=== PATIENT | male | born 1985 | race Caucasian/White ===

== ENCOUNTER 2021-01-01 09:20 | Outpatient (CLI) | payer MEDICARE, MEDICAID | END 2021-01-01 09:21 | disposition home or self-care (01) | LOC: CSHWCC 09:20 | PROVIDERS: ATTEND Nurse Practitioner Family | DX: S31.30XD Unspecified open wound of scrotum and testes, subsequent encounter (principal); L03.317 Cellulitis of buttock; B37.2 Candidiasis of skin and nail; E66.01 Morbid (severe) obesity due to excess calories; I89.0 Lymphedema, not elsewhere classified; J45.998 Other asthma; L02.828 Furuncle of other sites; B96.89 Other specified bacterial agents as the cause of diseases classified elsewhere; L20.89 Other atopic dermatitis; L73.2 Hidradenitis suppurativa; N50.89 Other specified disorders of the male genital organs | CPT/HCPCS: 99213; G0463 ==

== ENCOUNTER 2021-01-17 07:42 | Outpatient (CLI) | payer MEDICARE, MEDICAID | END 2021-01-17 07:43 | disposition home or self-care (01) | LOC: CSHWCC 07:42 | PROVIDERS: ATTEND Nurse Practitioner Family | DX: S31.30XD Unspecified open wound of scrotum and testes, subsequent encounter (principal); L03.317 Cellulitis of buttock; I89.0 Lymphedema, not elsewhere classified; B96.89 Other specified bacterial agents as the cause of diseases classified elsewhere; J45.998 Other asthma; B37.2 Candidiasis of skin and nail; L02.828 Furuncle of other sites; L08.89 Other specified local infections of the skin and subcutaneous tissue; L20.89 Other atopic dermatitis; L73.2 Hidradenitis suppurativa; E66.01 Morbid (severe) obesity due to excess calories | CPT/HCPCS: 99212; G0463 ==

== ENCOUNTER 2021-04-09 09:33 | Emergency (ER) | payer MEDICARE, MEDICAID ==
[2021-04-09] MEDS ORDERED: Bacitracin 1 PK ONE (11:16)
[2021-04-09] MEDS ORDERED: Acetaminophen 500 MG TAB ONE (11:19)
== END 2021-04-09 11:30 | disposition home or self-care (01) ==
LOC: CSHERS 09:33
DX: S20.211A Contusion of right front wall of thorax, initial encounter (principal); S50.311A Abrasion of right elbow, initial encounter; I48.91 Unspecified atrial fibrillation; Z79.01 Long term (current) use of anticoagulants; W01.0XXA Fall on same level from slipping, tripping and stumbling without subsequent striking against object, initial encounter
CPT/HCPCS: 71046

== ENCOUNTER 2021-05-07 09:21 | Outpatient (CLI) | payer MEDICARE, MEDICAID | END 2021-05-07 09:22 | disposition home or self-care (01) | LOC: CSHWCC 09:21 | PROVIDERS: ATTEND Nurse Practitioner Family | DX: S31.30XS Unspecified open wound of scrotum and testes, sequela (principal); B37.2 Candidiasis of skin and nail; E66.01 Morbid (severe) obesity due to excess calories; I89.0 Lymphedema, not elsewhere classified; J45.998 Other asthma; L02.828 Furuncle of other sites; B96.89 Other specified bacterial agents as the cause of diseases classified elsewhere; L03.317 Cellulitis of buttock; L08.89 Other specified local infections of the skin and subcutaneous tissue; L20.89 Other atopic dermatitis; L73.2 Hidradenitis suppurativa; N50.89 Other specified disorders of the male genital organs | CPT/HCPCS: 17250 ==

== ENCOUNTER 2022-06-19 08:29 | Outpatient (CLI) | payer MEDICARE, MEDICAID | END 2022-06-19 08:30 | disposition home or self-care (01) | LOC: CSHWCC 08:29 | PROVIDERS: ATTEND Preventive Medicine Undersea and Hyperbaric Medicine | DX: L73.2 Hidradenitis suppurativa (principal) | CPT/HCPCS: 10140; 97139; G0463; 99212 ==

== ENCOUNTER 2022-07-03 09:50 | Outpatient (CLI) | payer MEDICARE, MEDICAID | END 2022-07-03 09:51 | disposition home or self-care (01) | LOC: CSHWCC 09:50 | PROVIDERS: ATTEND Nurse Practitioner Family | DX: L73.2 Hidradenitis suppurativa (principal) | CPT/HCPCS: 97139; G0463; 99212 ==

== ENCOUNTER 2022-07-24 10:02 | Outpatient (CLI) | payer MEDICARE, MEDICAID | END 2022-07-24 10:03 | disposition home or self-care (01) | LOC: CSHWCC 10:02 | PROVIDERS: ATTEND Nurse Practitioner Family | DX: L73.2 Hidradenitis suppurativa (principal) | CPT/HCPCS: 99212; G0463 ==

== ENCOUNTER 2022-10-08 08:53 | Outpatient (CLI) | payer MEDICARE, MEDICAID | END 2022-10-08 08:54 | disposition home or self-care (01) | LOC: CSHWCC 08:53 | PROVIDERS: ATTEND Nurse Practitioner Family | DX: L73.2 Hidradenitis suppurativa (principal) | CPT/HCPCS: 87070; 87205; 97139; G0463; 99212 ==

== ENCOUNTER 2022-10-23 08:59 | Outpatient (CLI) | payer MEDICARE, MEDICAID | END 2022-10-23 09:00 | disposition home or self-care (01) | LOC: CSHWCC 08:59 | PROVIDERS: ATTEND Nurse Practitioner Family | DX: L97.822 Non-pressure chronic ulcer of other part of left lower leg with fat layer exposed (principal) ==

== ENCOUNTER 2022-11-05 09:08 | Outpatient (CLI) | payer MEDICARE, MEDICAID | END 2022-11-05 09:09 | disposition home or self-care (01) | LOC: CSHWCC 09:08 | PROVIDERS: ATTEND Nurse Practitioner Family | DX: L97.822 Non-pressure chronic ulcer of other part of left lower leg with fat layer exposed (principal) | CPT/HCPCS: 97139; G0463; 99213 ==

== ENCOUNTER 2022-11-19 10:00 | Outpatient (CLI) | payer MEDICARE, MEDICAID | END 2022-11-19 10:01 | disposition home or self-care (01) | LOC: CSHWCC 10:00 | PROVIDERS: ATTEND Nurse Practitioner Family | DX: S71.00 Unspecified open wound of hip (principal); L97.822 Non-pressure chronic ulcer of other part of left lower leg with fat layer exposed | CPT/HCPCS: 97139; G0463; 99213 ==

== ENCOUNTER 2022-12-18 13:18 | Outpatient (CLI) | payer MEDICARE, MEDICAID | END 2022-12-18 13:19 | disposition home or self-care (01) | LOC: CSHWCC 13:18 | PROVIDERS: ATTEND Nurse Practitioner Family | DX: S71.00 Unspecified open wound of hip (principal) | CPT/HCPCS: 87070; 87205 ==

== ENCOUNTER 2023-01-08 13:32 | Outpatient (CLI) | payer MEDICARE, MEDICAID | END 2023-01-08 13:33 | disposition home or self-care (01) | LOC: CSHWCC 13:32 | PROVIDERS: ATTEND Nurse Practitioner Family | DX: S71.00 Unspecified open wound of hip (principal) | CPT/HCPCS: 10061; 99212; G0463 ==

== ENCOUNTER 2023-01-21 18:25 | Inpatient (IN) | payer MEDICARE, MEDICAID ==
[~2023-01-21 18:25] MED LIST: Iopamidol 300 61% 100 ML VIAL FS ONE
[2023-01-21] MEDS ORDERED: Acetaminophen 500 MG TAB ONE (18:48)
[2023-01-21 18:53] LABS: #Eosinphils 0.1 10x3/uL (0.0-0.5); #Monocytes 0.5 10x3/uL (0.0-1.1); #Neutrophils 7.6 10x3/uL (1.5-8.4); %Basophils 0.3 % (0.0-2.0); %Eosinophils 0.9 % (0.0-6.0); %Lymphocytes 10.3 % (18.0-47.0); %Monocytes 4.9 % (0.0-10.0); %Neutrophils 83.1 % (40.0-75.0); Hemoglobin 11.8 g/dL (13.5-17.5); Mean Corpuscular HGB CONC 32.5 g/dL (32.0-36.0); Mean Corpuscular Hemoglobin 30.9 pg (27.0-33.0); Platelet Count 213 10x3/uL (150-450); RBC Distribution Width 15.7 % (11.5-14.5); Red Blood Cell (RBC) Count 3.82 10x6/uL (4.32-5.72); White Blood Cell (WBC) Count 9.1 10x3/uL (3.5-10.5)
[2023-01-21 19:03] LABS: ALT (SGPT) 29 U/L (8-55); AST (SGOT) 24 U/L (5-34); Albumin 4.1 g/dL (3.5-5.0); Alkaline Phosphatase 72 U/L (40-110); Anion Gap 17 mmol/L (10-20); BUN (Urea Nitrogen) 19 mg/dL (8.9-20.6); Bilirubin, Total 0.6 mg/dL (0.2-1.2); Calc. Creatinine Clearance 0 mL/min (70-130); Calcium 8.7 mg/dL (7.8-10.44); Carbon Dioxide 27 mmol/L (22-29); Chloride 95 mmol/L (98-107); Estimated GFR 95; Globulin 3.7 g/dL (2.4-3.5); Glucose 160 mg/dL (70-105); Potassium 3.8 mmol/L (3.5-5.1); Protein, Total 7.8 g/dL (6.0-8.3); Sodium 135 mmol/L (136-145)
[2023-01-21 19:46] LABS: SARS-CoV-2 NAA Rapid Test Not Detected (NotDetected)
[2023-01-21 20:04] LABS: Bilirubin Neg (Negative); Blood, Urine Negative (Negative); Clarity Clear (Clear); Glucose, Urine (Dipstick) Normal (Negative); Ketone, Urine Negative (Negative); Leukocyte 25 (Negative); Nitrite Negative (Negative); Protein, Urine (Dipstick) 100 mg/dl (Neg-Trace)
[2023-01-21 20:14] LABS: Bacteria/HPF 1+ HPF (None Seen); RBC/HPF None Seen HPF (0-3); Squamous Epithelial 0-3 HPF (0-3); WBC/HPF 0-3 HPF (0-3)
[2023-01-21] MEDS ORDERED: Cefepime 2 GM VIAL ONE (20:35)
[2023-01-21] MEDS ORDERED: VANCOMYCIN 2 GRAM/400 ML BAG 2 GM in Premix Bag 1 BAG IVPB SCH (21:30)
[2023-01-21 21:34] LABS: Lactic Acid 1.4 mmol/L (0.5-2.2)
[2023-01-21] MEDS ORDERED: Communication Order-Pharmacy FS PRN (21:35)
[2023-01-21] MEDS ORDERED: Dextrose 50% Abboject 50 ML SYRINGE SLOW IVP PRN (21:41)
[2023-01-21] MEDS ORDERED: HumaLOG 300 UNITS/3 ML VIAL SC PRN (21:41)
[2023-01-21] MEDS ORDERED: Dextrose 5% in Water 1,000 ML IV PRN (21:41)
[2023-01-21 22:02] LABS: Magnesium 1.9 mg/dL (1.6-2.6)
[2023-01-22 01:43] VITALS: BMI 48.6
[2023-01-22] MEDS ORDERED: Potassium Chloride 20 MEQ in Premix Bag 1 BAG IVPB SCH (02:00)
[2023-01-22] MEDS: NS 0.9% w/ 20 MEQ KCL 1,000 ML/1,000 ML BAG IV SCH ×3 (03:34→20:44)
[2023-01-22 05:00] LABS: #Eosinphils 0.1 10x3/uL (0.0-0.5); #Monocytes 0.5 10x3/uL (0.0-1.1); #Neutrophils 3.9 10x3/uL (1.5-8.4); %Basophils 0.3 % (0.0-2.0); %Eosinophils 1.6 % (0.0-6.0); %Lymphocytes 26.5 % (18.0-47.0); %Monocytes 7.6 % (0.0-10.0); %Neutrophils 63.7 % (40.0-75.0); Hemoglobin 10.9 g/dL (13.5-17.5); Mean Corpuscular HGB CONC 31.4 g/dL (32.0-36.0); Mean Corpuscular Hemoglobin 30.6 pg (27.0-33.0); Mean Corpuscular Volume 97.5 fl (81.2-95.1); Mean Platelet Volume 8.9 fl (7.4-10.4); Platelet Count 171 10x3/uL (150-450); Red Blood Cell (RBC) Count 3.56 10x6/uL (4.32-5.72); White Blood Cell (WBC) Count 6.1 10x3/uL (3.5-10.5)
[2023-01-22 05:04] LABS: Anion Gap 14 mmol/L (10-20); BUN (Urea Nitrogen) 14 mg/dL (8.9-20.6); Calc. Creatinine Clearance 271 mL/min (70-130); Calcium 8.3 mg/dL (7.8-10.44); Carbon Dioxide 25 mmol/L (22-29); Chloride 103 mmol/L (98-107); Estimated GFR 118; Glucose 106 mg/dL (70-105); Potassium 3.8 mmol/L (3.5-5.1); Sodium 138 mmol/L (136-145)
[2023-01-22] MEDS: Cefepime 2 GM in Sodium Chloride 0.9% 100 ML IVPB SCH ×2 (10:06→20:44)
[2023-01-22] MEDS: VANCOMYCIN 1.75 GM/350 ML BAG 1.75 GM in Premix Bag 1 BAG IVPB SCH ×2 (10:07→21:26)
[2023-01-22] MEDS: metFORMIN 500 MG TAB PO SCH (17:35)
[2023-01-22] MEDS: Apixaban 5 MG TAB PO SCH (20:44)
[2023-01-23] MEDS ORDERED: Levothyroxine Sodium 100 MCG TAB PO SCH (06:00)
[2023-01-23 06:09] LABS: #Eosinphils 0.1 10x3/uL (0.0-0.5); #Monocytes 0.4 10x3/uL (0.0-1.1); #Neutrophils 2.4 10x3/uL (1.5-8.4); %Basophils 0.4 % (0.0-2.0); %Eosinophils 2.6 % (0.0-6.0); %Monocytes 9.4 % (0.0-10.0); %Neutrophils 51.4 % (40.0-75.0); Hemoglobin 10.4 g/dL (13.5-17.5); Mean Corpuscular HGB CONC 30.2 g/dL (32.0-36.0); Mean Corpuscular Hemoglobin 29.8 pg (27.0-33.0); Mean Corpuscular Volume 98.6 fl (81.2-95.1); Mean Platelet Volume 8.7 fl (7.4-10.4); Platelet Count 166 10x3/uL (150-450); Red Blood Cell (RBC) Count 3.49 10x6/uL (4.32-5.72); White Blood Cell (WBC) Count 4.6 10x3/uL (3.5-10.5)
[2023-01-23 06:17] LABS: Anion Gap 12 mmol/L (10-20); BUN (Urea Nitrogen) 13 mg/dL (8.9-20.6); Calc. Creatinine Clearance 260 mL/min (70-130); Calcium 8.7 mg/dL (7.8-10.44); Carbon Dioxide 26 mmol/L (22-29); Chloride 106 mmol/L (98-107); Estimated GFR 117; Glucose 110 mg/dL (70-105); Potassium 4.3 mmol/L (3.5-5.1); Sodium 140 mmol/L (136-145)
[2023-01-23] MEDS: NS 0.9% w/ 20 MEQ KCL 1,000 ML/1,000 ML BAG IV SCH (06:26)
[2023-01-23 08:15] LABS: Vancomycin, Trough 20.7 ug/mL
[2023-01-23] MEDS ORDERED: Furosemide 40 MG TAB PO SCH (09:00)
[2023-01-23] MEDS ORDERED: Doxycycline 100 MG CAP PO SCH (09:00)
[2023-01-23] MEDS ORDERED: Vancomycin 1.5 GRAM/300 ML BAG 1.5 GM in Premix Bag 1 BAG IVPB SCH (09:00)
[2023-01-23] MEDS: metFORMIN 500 MG TAB PO SCH (10:53)
[2023-01-23] MEDS: Apixaban 5 MG TAB PO SCH (10:53)
[2023-01-23] MEDS: Cefepime 2 GM in Sodium Chloride 0.9% 100 ML IVPB SCH (10:54)
[2023-01-23 12:22] VITALS: BP 130/63; TEMP 99.2
== END 2023-01-23 15:06 | disposition home or self-care (01) | DRG 872 ==
LOC: CSHERS 18:25 → CSHTELE 01-22 01:29
PROVIDERS: ADMIT Family Medicine; ATTEND Hospitalist
DX: A41.9 Sepsis, unspecified organism (principal); L03.314 Cellulitis of groin; Z68.42 Body mass index [BMI] 45.0-49.9, adult; G80.9 Cerebral palsy, unspecified; I48.91 Unspecified atrial fibrillation; E66.9 Obesity, unspecified; I10 Essential (primary) hypertension; L73.2 Hidradenitis suppurativa; E11.628 Type 2 diabetes mellitus with other skin complications; Z20.822 Contact with and (suspected) exposure to COVID-19; Z88.0 Allergy status to penicillin; Z88.5 Allergy status to narcotic agent; Z88.8 Allergy status to other drugs, medicaments and biological substances; Z98.890 Other specified postprocedural states; Z88.1 Allergy status to other antibiotic agents; Z79.01 Long term (current) use of anticoagulants; Z79.4 Long term (current) use of insulin; Z79.899 Other long term (current) drug therapy
CPT/HCPCS: 36415; 36416; 71045; 72193; 80048; 80053; 80202; 81003; 81015; 83605; 83735; 83880; 84443; 84484; 85025; 85730; 87040; 87086; 93005; 96361; 96365; 96366; 96367; 97139; J0692; J3370; J3480; J3490; Q9967

== ENCOUNTER 2023-02-14 08:25 | Outpatient (CLI) | payer MEDICARE, MEDICAID | END 2023-02-14 08:26 | disposition home or self-care (01) | LOC: CSHWCC 08:25 | PROVIDERS: ATTEND Nurse Practitioner Family | DX: S71.00 Unspecified open wound of hip (principal) | CPT/HCPCS: 99212; G0463 ==

== ENCOUNTER 2023-04-03 09:55 | Outpatient (CLI) | payer MEDICARE, MEDICAID | END 2023-04-03 09:56 | disposition home or self-care (01) | LOC: CSHWCC 09:55 | PROVIDERS: ATTEND Nurse Practitioner Family | DX: S31.000D Unspecified open wound of lower back and pelvis without penetration into retroperitoneum, subsequent encounter (principal) | CPT/HCPCS: 97139; G0463; 99211 ==

== ENCOUNTER 2023-04-24 08:58 | Outpatient (CLI) | payer MEDICARE, MEDICAID | END 2023-04-24 08:59 | disposition home or self-care (01) | LOC: CSHWCC 08:58 | PROVIDERS: ATTEND Nurse Practitioner Family | DX: S31.000D Unspecified open wound of lower back and pelvis without penetration into retroperitoneum, subsequent encounter (principal) | CPT/HCPCS: 97602 ==

== ENCOUNTER 2023-05-15 09:27 | Outpatient (CLI) | payer MEDICARE, MEDICAID | END 2023-05-15 09:28 | disposition home or self-care (01) | LOC: CSHWCC 09:27 | PROVIDERS: ATTEND Nurse Practitioner Family | DX: S31.000D Unspecified open wound of lower back and pelvis without penetration into retroperitoneum, subsequent encounter (principal) | CPT/HCPCS: 97602 ==

== ENCOUNTER 2023-06-12 09:35 | Outpatient (CLI) | payer MEDICARE, MEDICAID | END 2023-06-12 09:36 | disposition home or self-care (01) | LOC: CSHWCC 09:35 | PROVIDERS: ATTEND Preventive Medicine Undersea and Hyperbaric Medicine | DX: S31.000D Unspecified open wound of lower back and pelvis without penetration into retroperitoneum, subsequent encounter (principal) | CPT/HCPCS: 97602 ==

== ENCOUNTER 2023-06-18 10:41 | Outpatient (CLI) | payer MEDICARE, MEDICAID | END 2023-06-18 10:42 | disposition home or self-care (01) | LOC: CSHWCC 10:41 | PROVIDERS: ATTEND Physician Assistant | DX: S31.000D Unspecified open wound of lower back and pelvis without penetration into retroperitoneum, subsequent encounter (principal) | CPT/HCPCS: 97602; G0463; 99213 ==

== ENCOUNTER 2023-07-16 10:42 | Outpatient (CLI) | payer MEDICARE, MEDICAID | END 2023-07-16 10:43 | disposition home or self-care (01) | LOC: CSHWCC 10:42 | PROVIDERS: ATTEND Physician Assistant | DX: S31.000D Unspecified open wound of lower back and pelvis without penetration into retroperitoneum, subsequent encounter (principal); L73.2 Hidradenitis suppurativa | CPT/HCPCS: 99213; G0463 ==

== ENCOUNTER 2023-08-13 10:22 | Outpatient (CLI) | payer MEDICARE, MEDICAID | END 2023-08-13 10:23 | disposition home or self-care (01) | LOC: CSHWCC 10:22 | PROVIDERS: ATTEND Physician Assistant | DX: S31.000D Unspecified open wound of lower back and pelvis without penetration into retroperitoneum, subsequent encounter (principal); L73.2 Hidradenitis suppurativa | CPT/HCPCS: 99212; G0463 ==

== ENCOUNTER 2023-08-24 17:58 | Emergency (ER) | payer MEDICARE, MEDICAID ==
[2023-08-24] MEDS ORDERED: Aspirin Chewable 81 MG TAB ONE (18:45)
[2023-08-24 18:58] LABS: #Eosinphils 0.2 10x3/uL (0.0-0.5); #Monocytes 0.4 10x3/uL (0.0-1.1); #Neutrophils 3.4 10x3/uL (1.5-8.4); %Basophils 0.3 % (0.0-2.0); %Eosinophils 3.4 % (0.0-6.0); %Lymphocytes 31.4 % (18.0-47.0); %Monocytes 6.6 % (0.0-10.0); Hematocrit 37.2 % (38.8-50.0); Hemoglobin 11.9 g/dL (13.5-17.5); Mean Corpuscular Hemoglobin 32.2 pg (27.0-33.0); Mean Corpuscular Volume 100.5 fl (81.2-95.1); Platelet Count 192 10x3/uL (150-450); RBC Distribution Width 15.4 % (11.5-14.5); White Blood Cell (WBC) Count 5.9 10x3/uL (3.5-10.5)
[2023-08-24 19:10] LABS: PTT 35.9 sec (22.0-33.0); Prothrombin Time 10.7 sec (9.5-12.1)
[2023-08-24 19:12] LABS: ALT (SGPT) 43 U/L (8-55); AST (SGOT) 28 U/L (5-34); Albumin 4.2 g/dL (3.5-5.0); Alkaline Phosphatase 75 U/L (40-110); Anion Gap 15 mmol/L (10-20); BUN (Urea Nitrogen) 18 mg/dL (8.9-20.6); Bilirubin, Total 0.3 mg/dL (0.2-1.2); Calc. Creatinine Clearance 0 mL/min (70-130); Carbon Dioxide 26 mmol/L (22-29); Chloride 100 mmol/L (98-107); Estimated GFR 104; Globulin 3.6 g/dL (2.4-3.5); Glucose 107 mg/dL (70-105); Lipase 39 U/L (8-78); Potassium 4.4 mmol/L (3.5-5.1); Protein, Total 7.8 g/dL (6.0-8.3); Sodium 137 mmol/L (136-145)
[2023-08-24 19:18] LABS: Troponin I Less than 0.010 ng/mL (< 0.028)
[2023-08-24] MEDS ORDERED: Ipratropium/Albuterol 3 ML NEB ONE (19:44)
[2023-08-24 20:19] LABS: SARS-CoV-2 NAA Rapid Test DETECTED (NotDetected)
== END 2023-08-24 21:10 | disposition home or self-care (01) ==
LOC: CSHERS 17:58
DX: U07.1 COVID-19 (principal); J45.901 Unspecified asthma with (acute) exacerbation
CPT/HCPCS: 0240U; 71045; 80053; 83690; 83880; 84484; 85025; 85610; 85730; 93005; 94640; 94760; 93010; J7620

== ENCOUNTER 2023-09-18 08:41 | Outpatient (CLI) | payer MEDICARE, MEDICAID | END 2023-09-18 08:42 | disposition home or self-care (01) | LOC: CSHWCC 08:41 | PROVIDERS: ATTEND Preventive Medicine Undersea and Hyperbaric Medicine | DX: S31.000D Unspecified open wound of lower back and pelvis without penetration into retroperitoneum, subsequent encounter (principal); L73.2 Hidradenitis suppurativa | CPT/HCPCS: 99212; G0463 ==

== ENCOUNTER 2023-10-09 15:49 | Outpatient (CLI) | payer MEDICARE, MEDICAID | END 2023-10-09 15:50 | disposition home or self-care (01) | LOC: CSHWCC 15:49 | PROVIDERS: ATTEND Nurse Practitioner Family | DX: S31.000D Unspecified open wound of lower back and pelvis without penetration into retroperitoneum, subsequent encounter (principal); L73.2 Hidradenitis suppurativa | CPT/HCPCS: 99213; G0463 ==

== ENCOUNTER 2023-11-04 16:14 | Outpatient (CLI) | payer MEDICARE, MEDICAID | END 2023-11-04 16:15 | disposition home or self-care (01) | LOC: CSHWCC 16:14 | PROVIDERS: ATTEND Nurse Practitioner Family | DX: S31.000D Unspecified open wound of lower back and pelvis without penetration into retroperitoneum, subsequent encounter (principal); L73.2 Hidradenitis suppurativa | CPT/HCPCS: 99212; G0463 ==

== ENCOUNTER 2024-01-20 11:21 | Outpatient (CLI) | payer MEDICARE, MEDICAID | END 2024-01-20 11:22 | disposition home or self-care (01) | LOC: CSHWCC 11:21 | PROVIDERS: ATTEND Nurse Practitioner Family | DX: S31.000D Unspecified open wound of lower back and pelvis without penetration into retroperitoneum, subsequent encounter (principal); L73.2 Hidradenitis suppurativa; B35.6 Tinea cruris | CPT/HCPCS: 99213; G0463 ==

== ENCOUNTER 2024-02-17 11:15 | Outpatient (CLI) | payer MEDICARE, MEDICAID | END 2024-02-17 11:16 | disposition home or self-care (01) | LOC: CSHWCC 11:15 | PROVIDERS: ATTEND Nurse Practitioner Family | DX: S31.000D Unspecified open wound of lower back and pelvis without penetration into retroperitoneum, subsequent encounter (principal); L73.2 Hidradenitis suppurativa; B35.6 Tinea cruris ==